=== PATIENT | female | born 1995 | race Hispanic/Latino ===

== ENCOUNTER 2020-04-07 18:09 | Emergency (ER) | payer MEDICAID ==
[2020-04-07] MEDS ORDERED: ACETAMINOPHEN 500 MG TABLET ONE (18:38)
[2020-04-07] MEDS ORDERED: ACETAMINOPHEN WITH CODEINE 1 TAB TAB ONE (21:34)
== END 2020-04-07 22:05 | disposition home or self-care (01) ==
LOC: EDH 18:09
DX: S29.012A Strain of muscle and tendon of back wall of thorax, initial encounter (principal); S00.93XA Contusion of unspecified part of head, initial encounter; S20.219A Contusion of unspecified front wall of thorax, initial encounter; Z90.49 Acquired absence of other specified parts of digestive tract; Y08.89XA Assault by other specified means, initial encounter; Y93.89 Activity, other specified; Y92.89 Other specified places as the place of occurrence of the external cause; Y99.8 Other external cause status
CPT/HCPCS: 36415; 70450; 71045; 72125; 84702